=== PATIENT | male | born 1970 ===

== ENCOUNTER 2021-10-30 15:16 | Emergency (ER) | payer OTHER ==
[~2021-10-30] VITALS: Ht 172 cm; Wt 73.0 kg
[2021-10-30] MEDS ORDERED: NS IV 1000 ML 1,000 ML IV STA (15:29)
[2021-10-30 15:34] LABS: BASOPHILS # (AUTO) 0.1 10^3/uL (0.0-0.1); BASOPHILS % (AUTO) 1 % (0-10); EOSINOPHILS # (AUTO) 0.2 10^3/uL (0.0-0.3); EOSINOPHILS % (AUTO) 2 % (0-10); HEMATOCRIT 43 % (40-54); LYMPHOCYTES # (AUTO) 1.9 10^3/uL (1.0-4.0); LYMPHOCYTES % (AUTO) 19 % (12-44); MEAN CORPUSCULAR HEMOGLOBIN 32 pg (25-34); MEAN CORPUSCULAR HGB CONC 35 g/dL (32-36); MEAN CORPUSCULAR VOLUME 91 fL (80-99); MEAN PLATELET VOLUME 9.9 fL (9.0-12.2); MONOCYTES # (AUTO) 0.8 10^3/uL (0.0-1.0); MONOCYTES % (AUTO) 7 % (0-12); NEUTROPHILS # (AUTO) 7.3 10^3/uL (1.8-7.8); NEUTROPHILS % (AUTO) 71 % (42-75); PLATELET COUNT 278 10^3/uL (130-400); WHITE BLOOD COUNT 10.2 10^3/uL (4.3-11.0)
--- NOTE | 2021-10-30 15:38 | ED Syncope ---
General Chief Complaint: Dizziness/Syncope Stated Complaint: SYNCOPAL EPISODE; AMS; RICHARDS Nursing Triage Note: Patient has presented to ER with cc of a syncopal episode. Patient friend reports that they were standing around talking out side, patient had drank 5 beers this afternoon. The patient stumbled back a few steps and fell backwards on the grass and was out for a few minutes. Patient was brought to ER by his friends for evaluation. Patient arrived alert but he is not sure of the details of the event. Source of Information: Patient, Other (friends) Exam Limitations: Other (memory issues and asking repetitive questions.) History of Present Illness Date Seen by Provider: Oct 30, 2021 Time Seen by Provider: 15:24 Initial Comments 51 yo male presenting with friends by POV to the ED after he had a syncopal episode about 1 pm. He was talking with his friends and then took a step back and fell backward onto the ground. He has been having repetitive questioning sensation and a headache. He had 5-6 beers today. He denies any past medical problems. He denies taking any medications on a routine basis. He is having trouble answering questions due to not remembering. He has repetitive questioning about what was happening and where he was as well as why he was in the emergency department. Timing/Prior Episodes: No Prior History Symptoms Prior to Episode: Blurred Vision, Confusion, Diaphoresis, Injury, Lightheadedness, Nausea, Pain, Rapid Heart Rate, Recent Head Trauma Precipitating Factors: None Loss of Consciousness: Prolonged (Minutes) (per his friends that brought him to the ED) Current Symptoms: No Blurred Vision, No Chest Pain, No Diaphoresis, No Dizziness; Headache (generalized); No Injury, No Lightheadedness, No Loss of Bladder Control, No Loss of Bowel Control, No Motionless, No Nausea, No Pale, No Shallow/Rapid Breathing, No Weak/Absent Pulse, No Weakness Allergies and Home Medications Allergies Coded Allergies: No Known Drug Allergies (Unverified , 10/30/21) Patient Home Medication List Home Medication List Reviewed: Yes Review of Systems Constitutional: No chills, No diaphoresis, No dizziness, No fever EENTM: No ear discharge, No ear pain, No blurred vision, No eye pain, No vision loss, No hoarseness, No epistaxis, No nose congestion, No throat pain Respiratory: No cough, No short of breath Cardiovascular: No chest pain, No palpitations Gastrointestinal: No abdominal pain, No nausea, No vomiting Genitourinary: no symptoms reported Musculoskeletal: no symptoms reported Skin: No rash Psychiatric/Neurological: Headache (generalized); Denies Numbness, Denies Paresthesia, Denies Weakness; Other (repetitive questioning and difficulty with memory) Past Ucohaug-Pxjfds-Ompxyj Hx Patient Social History Tobacco Use?: Yes Use of E-Cig and/or Vaping dev: No Substance use?: No Alcohol Use?: Yes Alcohol type: Beer Alcohol Frequency: Once in a while Past Medical History Surgery/Hospitalization HX: Hypertension, Hypercholesterolemia Physical Exam Vital Signs Vital Signs - First Documented 10/30/21 15:28 Temp 36.5 Pulse 94 Resp 18 B/P (MAP) 124/74 (91) Pulse Ox 97 O2 Delivery Room Air Capillary Refill : Height, Weight, BMI Height: '" Weight: lbs. oz. kg; 24.00 BMI Method: General Appearance: No Apparent Distress, WD/WN HEENT: PERRL/EOMI, TMs Normal, Normal ENT Inspection, Pharynx Normal Neck: Full Range of Motion, Normal Inspection, Non Tender, Supple Cardiovascular: Regular Rate, Rhythm, No Murmur, Normal Peripheral Pulses Respiratory: Chest Non Tender, Lungs Clear, Normal Breath Sounds, No Accessory Muscle Use, No Respiratory Distress Gastrointestinal: Normal Bowel Sounds, No Pulsatile Mass, Non Tender, Soft Extremities: Normal Capillary Refill, Normal Inspection, No Calf Tenderness, No Pedal Edema Neurologic/Psychiatric: Alert, Oriented x3, ship ceiler II-XII Norm as Tested Cranial Nerves: Normal Hearing, Normal Speech, PERRL Coordination/Gait: Normal Gait Motor/Sensory: No Motor Deficit, No Sensory Deficit, No Pronator Drift Skin: Normal Color, Warm/Dry Progress/Results/Core Measures Results/Orders Lab Results Laboratory Tests Test 10/30/21 15:29 10/30/21 15:30 10/30/21 17:44 Range/Units White Blood Count 10.2 4.3-11.0 10^3/uL Red Blood Count 4.71 4.30-5.52 10^6/uL Hemoglobin 15.0 13.3-17.7 g/dL Hematocrit 43 40-54 % Mean Corpuscular Volume 91 80-99 fL Mean Corpuscular Hemoglobin 32 25-34 pg Mean Corpuscular Hemoglobin Concent 35 32-36 g/dL Red Cell Distribution Width 12.2 10.0-14.5 % Platelet Count 278 130-400 10^3/uL Mean Platelet Volume 9.9 9.0-12.2 fL Immature Granulocyte % (Auto) 0 % Neutrophils (%) (Auto) 71 42-75 % Lymphocytes (%) (Auto) 19 12-44 % Monocytes (%) (Auto) 7 0-12 % Eosinophils (%) (Auto) 2 0-10 % Basophils (%) (Auto) 1 0-10 % Neutrophils # (Auto) 7.3 1.8-7.8 10^3/uL Lymphocytes # (Auto) 1.9 1.0-4.0 10^3/uL Monocytes # (Auto) 0.8 0.0-1.0 10^3/uL Eosinophils # (Auto) 0.2 0.0-0.3 10^3/uL Basophils # (Auto) 0.1 0.0-0.1 10^3/uL Immature Granulocyte # (Auto) 0.0 0.0-0.1 10^3/uL Prothrombin Time 12.9 12.2-14.7 SEC INR Comment 0.9 0.8-1.4 Activated Partial Thromboplast Time 27 24-35 SEC Sodium Level 141 135-145 MMOL/L Potassium Level 4.1 3.6-5.0 MMOL/L Chloride Level 102 98-107 MMOL/L Carbon Dioxide Level 26 21-32 MMOL/L Anion Gap 13 5-14 MMOL/L Blood Urea Nitrogen 17 7-18 MG/DL Creatinine 1.25 0.60-1.30 MG/DL Estimat Glomerular Filtration Rate 69 BUN/Creatinine Ratio 14 Glucose Level 91 70-105 MG/DL Calcium Level 9.3 8.5-10.1 MG/DL Corrected Calcium 8.5-10.1 MG/DL Magnesium Level 1.9 1.6-2.4 MG/DL Total Bilirubin 0.6 0.1-1.0 MG/DL Aspartate Amino Transf (AST/SGOT) 30 5-34 U/L Alanine Aminotransferase (ALT/SGPT) 27 0-55 U/L Alkaline Phosphatase 63 40-136 U/L Troponin I < 0.30 <0.30 NG/ML Pro-B-Type Natriuretic Peptide 7.1 <125.0 PG/ML Total Protein 7.2 6.4-8.2 GM/DL Albumin 4.9 H 3.2-4.5 GM/DL Lipase 23 8-78 U/L Serum Alcohol 75 H <10 MG/DL Urine Opiates Screen NEGATIVE NEGATIVE Urine Oxycodone Screen NEGATIVE NEGATIVE Urine Methadone Screen NEGATIVE NEGATIVE Urine Propoxyphene Screen NEGATIVE NEGATIVE Urine Barbiturates Screen NEGATIVE NEGATIVE Ur Tricyclic Antidepressants Screen NEGATIVE NEGATIVE Urine Phencyclidine Screen NEGATIVE NEGATIVE Urine Amphetamines Screen NEGATIVE NEGATIVE Urine Methamphetamines Screen NEGATIVE NEGATIVE Urine Benzodiazepines Screen NEGATIVE NEGATIVE Urine Cocaine Screen NEGATIVE NEGATIVE Urine Cannabinoids Screen NEGATIVE NEGATIVE SARS-CoV-2 RNA (RT-PCR) Not Detected Not Detecte My Orders Orders - WAYNE CARVALHO MD Cbc With Automated Diff (10/30/21 15:) Magnesium (10/30/21 15:) Chest 1 View Ap/Pa Only (10/30/21 15:29) Ekg Tracing (10/30/21 15:) Comprehensive Metabolic Panel (10/30/21 15:29) Protime With Inr (10/30/21 15:29) Partial Thromboplastin Time (10/30/21 15:29) O2 (10/30/21 15:29) Monitor-Rhythm Ecg Trace Only (10/30/21 15:29) Ed Iv/Invasive Line Start (10/30/21 15:29) Lipase (10/30/21 15:29) Troponin I Fs (10/30/21 15:29) Probnp Fs (10/30/21 15:29) Ns Iv 1000 Ml (Sodium Chloride 0.9%) (10/30/21 15:29) Ct Head Wo (10/30/21 15:29) Alcohol (10/30/21 15:29) Drug Screen Stat (Urine) (10/30/21 15:29) Ketorolac Injection (Toradol Injection) (10/30/21 16:18) Covid 19 Inhouse Test (10/30/21 17:40) Acetaminophen Tablet (Tylenol Tablet) (10/30/21 17:49) Vital Signs/I&O 10/30/21 10/30/21 15:28 17:56 Temp 36.5 36.5 Pulse 94 98 Resp 18 16 B/P (MAP) 124/74 (91) 135/83 Pulse Ox 97 97 O2 Delivery Room Air Room Air Blood Pressure Mean: 91 Progress Progress Note #1: Progress Note Obtain basic labs and urinalysis with a drug screen and alcohol level. CT scan of his head to evaluate for possible acute neurologic event or stroke or bleeding. Electrocardiogram looking for possible arrhythmia or acute ischemic changes with his heart rhythm. Administer a liter of normal saline IV fluid bolus for hydration. Differential diagnosis includes syncope, cardiac arrhythmia, stroke, myocardial infarction, alcohol intoxication, substance abuse Progress Note #2: Progress Note Labs did not show any acute significant abnormality on his CBC or chemistry. Urine drug screen was negative. Alcohol level was 75. CT scan of his head did not show any acute significant abnormality. His chest x-ray was not showing any acute process. Electrocardiogram shows sinus rhythm without acute ischemia. He continues to have repetitive questioning and in usual. He does not remember the discussion and explanation of events and testing. He continues to ask the same questions over and over. 1618 I called and spoke with Dr. Posey for the hospitalist service. She recommended transfer to a facility that would have neurology. 1623 PARVEEN Olson, at [facility] advised that they did not have any beds for neurology to see the patient, other than [facility] in [place], [place]. Will check to see if any other facilities closer to [place] and closer to his home are available. 1629 I called [facility] and spoke with transfer doctor, Dr. Soliz and neurologist Dr. Hernandez. They did not have any beds anywhere in the [facility]. 1656 PARVEEN Portillo, nursing cloth brushing and sueding supervisor at [facility] took some basic information and said she would have to check about bed availability and to check about neurology services. She will call me back when she finds out more information on her end. 1717 Dr. Wang, neurology, for [facility] called back and stated he felt the patient would need a bigger facility for the transient global amnesia. 1724 DELORES Lazaro working with Dr. Kiera Lowery called back from [facility]. They had a telemetry bed open up that could take the patient. I r eviewed the case with her and they will accept to [facility]. Will call back with bed assignment shortly. Initial ECG Impression Date: Oct 30, 2021 Initial ECG Impression Time: 15:29 Initial ECG Rate: 87 Initial ECG Rhythm: Normal Sinus Initial ECG Comparisson: No Previous ECG Available Comment Normal sinus rhythm with a heart rate of 87 bpm. PA interval [address] elevation. QT interval 350 ms with a QTc interval 394 ms. There is no prior tracing available for comparison. Diagnostic Imaging Diagonstic Imaging: CT Plain Films/CT/US/NM/MRI: head Comments [facility] [place] NAME: GAYE PEREZ [facility] REC#: [id number] PT STATUS: REG ER : 1970 PHYSICIAN: WAYNE CARVALHO MD ADMIT DATE: 10/30/21/ER FS Signed Date of Exam:10/30/21 CT HEAD WO PROCEDURE: CT head without contrast. TECHNIQUE: Multiple contiguous axial images were obtained through the brain without the use of intravenous contrast. Auto Exposure Controls were utilized during the CT exam to meet ALARA standards for radiation dose reduction. INDICATION: Syncope and headache FINDINGS: The ventricles and sulci are within normal limits. There is no hydrocephalus or cerebral edema. There is no midline shift or mass effect. There is no intracranial mass, hemorrhage, or extra-axial fluid collection. The visualized paranasal sinuses and mastoid air cells are clear. There are no regional areas of decreased attenuation appreciated to suggest an acute CVA. IMPRESSION: No acute intracranial abnormality. Dictated by: Dictated on workstation # [id number] Dict: 10/30/21 1549 Trans: 10/30/21 1620 [facility] [id number] Interpreted by: LURDES KAUR MD Electronically signed by: LURDES KAUR MD 10/30/21 1620 Reviewed: Reviewed by In Diagonstic Imaging: Xray Plain Films/CT/US/NM/MRI: chest Comments [facility] [place] NAME: GAYE PEREZ [facility] REC#: [id number] PT STATUS: REG ER : 1970 PHYSICIAN: WAYNE CARVALHO MD ADMIT DATE: 10/30/21/ER FS Signed Date of Exam:10/30/21 CHEST 1 VIEW AP/PA ONLY INDICATION: Syncope. FINDINGS: The heart size, mediastinal configuration, and pulmonary vascularity are within normal limits. There is no pleural effusion, pneumothorax, or pneumonia. The osseous structures are unremarkable. IMPRESSION: No acute cardiopulmonary abnormality. Dictated by: Dictated on workstation # [id number] Dict: 10/30/21 1551 Trans: 10/30/21 1620 PJE [id number] Interpreted by: LURDES KAUR MD Electronically signed by: LURDES KAUR MD 10/30/211619 Reviewed: Reviewed by Me Departure Impression Primary Impression: Syncope Qualified Codes: R55 - Syncope and collapse Additional Impressions: Amnesia, global, transient Alcohol intoxication Qualified Codes: F10.920 - Alcohol use, unspecified with intoxication, uncomplicated Disposition: XFER SHT-TRM HOSP Condition: Stable Transfer Transfer Reason: Exceeds level of care (Neurology consult and cardiac monitoring for admit) Time Spoke to Accepting Phy: 17:24 Transfer Progress Notes d/w DIPPER CLOCK AND WATCH HANDS Kindra Lazaro, excavation laborer for hospitalist Dr. Kiera Lowery. She accepted pt to [facility] for syncope to have telemetry monitoring and neuro consult for the transient global amnesia. Transfer Facility: [facility] Method of Transfer: EMS WAYNE CARVALHO MD Oct 30, 2021 15:37
[2021-10-30 15:44] LABS: INR 0.9 (0.8-1.4); PROTHROMBIN TIME PATIENT 12.9 SEC (12.2-14.7)
[2021-10-30 15:50] LABS: AMPHETAMINE SCREEN, URINE NEGATIVE (NEGATIVE); BARBITURATE SCREEN URINE NEGATIVE (NEGATIVE); BENZODIAZEPINES SCREEN URINE NEGATIVE (NEGATIVE); CANNABINOID SCREEN, URINE NEGATIVE (NEGATIVE); COCAINE SCREEN URINE NEGATIVE (NEGATIVE); METHADONE STAT NEGATIVE (NEGATIVE); OPIATE SCREEN URINE NEGATIVE (NEGATIVE); OXYCODONE STAT NEGATIVE (NEGATIVE); PROPOXYPHENE STAT NEGATIVE (NEGATIVE); TRICYCLIC ANTIDEPRESSANTS SCRE NEGATIVE (NEGATIVE)
[2021-10-30 15:51] LABS: CARBON DIOXIDE 26 MMOL/L (21-32); CHLORIDE 102 MMOL/L (98-107); LIPASE 23 U/L (8-78); POTASSIUM 4.1 MMOL/L (3.6-5.0); SODIUM 141 MMOL/L (135-145)
[2021-10-30 15:52] LABS: ALANINE AMINOTRANSFERASE 27 U/L (0-55); ALBUMIN 4.9 GM/DL (3.2-4.5); ALKALINE PHOSPHATASE 63 U/L (40-136); BILIRUBIN,TOTAL 0.6 MG/DL (0.1-1.0); BUN/CREATININE RATIO 14; CALCIUM 9.3 MG/DL (8.5-10.1); CREATININE SERUM 1.25 MG/DL (0.60-1.30); GFR ESTIMATED 69; GLUCOSE 91 MG/DL (70-105); MAGNESIUM 1.9 MG/DL (1.6-2.4); TOTAL PROTEIN 7.2 GM/DL (6.4-8.2)
--- NOTE | 2021-10-30 15:55 | Diagnostic Imaging Report ---
PROCEDURE: CT head without contrast. TECHNIQUE: Multiple contiguous axial images were obtained through the brain without the use of intravenous contrast. Auto Exposure Controls were utilized during the CT exam to meet ALARA standards for radiation dose reduction. INDICATION: Syncope and headache FINDINGS: The ventricles and sulci are within normal limits. There is no hydrocephalus or cerebral edema. There is no midline shift or mass effect. There is no intracranial mass, hemorrhage, or extra-axial fluid collection. The visualized paranasal sinuses and mastoid air cells are clear. There are no regional areas of decreased attenuation appreciated to suggest an acute CVA. IMPRESSION: No acute intracranial abnormality. Dictated by: Dictated on workstation # [id number]
--- NOTE | 2021-10-30 15:56 | Diagnostic Imaging Report ---
INDICATION: Syncope. FINDINGS: The heart size, mediastinal configuration, and pulmonary vascularity are within normal limits. There is no pleural effusion, pneumothorax, or pneumonia. The osseous structures are unremarkable. IMPRESSION: No acute cardiopulmonary abnormality. Dictated by: Dictated on workstation # [id number]
[2021-10-30] MEDS ORDERED: KETOROLAC 30 MG/ML VIAL IVP STA (16:18)
[2021-10-30] MEDS ORDERED: ACETAMINOPHEN 500 MG TAB (TYLENOL) PO STA (17:49)
[2021-10-30 17:56] VITALS: BP 135/83
== END 2021-10-30 18:22 | disposition short-term general hospital (02) ==
LOC: ER FS 15:17
DX: R55 Syncope and collapse (principal); G45.4 Transient global amnesia; F10.920 Alcohol use, unspecified with intoxication, uncomplicated; Z20.822 Contact with and (suspected) exposure to COVID-19; Y90.3 Blood alcohol level of 60-79 mg/100 ml
CPT/HCPCS: 36415; 70450; 71045; 80053; 80306; 83690; 83735; 83880; 84484; 85025; 85610; 85730; 87636; 93005; 93041; 99284; G0480; 80320